=== PATIENT | female | born 1970 | race Caucasian/White ===

== ENCOUNTER → 2021-04-03 16:35 | Outpatient (CLI) | payer OTHER, SELFPAY ==
[2021-04-03 17:17] LABS: Add Manual Diff / Slide Review NO; Basophils Absolute Auto 0 /uL (0-100); Basophils Percent Auto 0.3 % (0-2); Eosinophils Absolute Auto 100 /uL (0-450); Eosinophils Percent Auto 1.5 % (2-4); Hematocrit 38.1 % (36-46); Hemoglobin 13.2 g/dL (12.0-16.0); Lymphocytes Absolute Auto 2500 /uL (1100-4500); Lymphocytes Percent Auto 32.5 % (25-40); Mean Corpuscular HGB Conc 34.7 % (30-36); Mean Corpuscular Hemoglobin 30.7 PG (26-34); Mean Corpuscular Volume 88.4 fL (80-100); Monocytes Absolute Auto 400 /uL (0-900); Monocytes Percent Auto 5.8 % (3-14); Neutrophils Absolute Auto 4600 /uL (1500-7000); Neutrophils Percent Auto 59.9 % (50-75); Platelet Count 239 X10^3/uL (150-400); Red Blood Cell Count 4.32 X10^6/uL (4.0-5.2); Red Cell Distribution Width 12.7 % (11.6-14.8); White Blood Cell Count 7.6 X10^3/uL (4.5-11.0)
[2021-04-03 17:24] LABS: Alanine Aminotransferase 14 IU/L (<35); Albumin 4.9 g/dL (3.5-5.0); Albumin Globulin Ratio 1.8 (1.0-2.8); Alkaline Phosphatase 60 U/L (38-126); Aspartate Aminotransferase 22 IU/L (14-36); BUN Creatinine Ratio 12.7 (6-22); Bilirubin Total 0.5 mg/dL (0.2-1.3); Blood Urea Nitrogen 8 mg/dL (7-17); C-Reactive Protein Quant < 0.5 mg/dL (<1.0); Calcium 10.2 mg/dL (8.4-10.2); Carbon Dioxide 28 mmol/L (22-32); Chloride 105 mmol/L (98-107); Estimated Glomerular Filt Rate > 60.0 mL/min (>60); Globulin 2.7 g/dL (1.7-4.1); Glucose 87 mg/dL (70-100); HEMOLYSIS < 15 (0-50); Lipase 46 U/L (23-300); Potassium 4.7 mmol/L (3.4-5.1); Sodium 139 mmol/L (137-145); Total Protein 7.6 g/dL (6.3-8.2)
[2021-04-03 17:54] LABS: TSH w/ Reflex to FT4 0.87 uIU/mL (0.47-4.68)
== END ==
PROVIDERS: PCP Family Medicine; Referring Provider Family Medicine; Visit Provider Family Medicine
DX: R19.7 Diarrhea, unspecified (principal)
CPT/HCPCS: 36415; 80053; 83690; 84443; 85025; 86140

== ENCOUNTER → 2021-04-08 11:24 | Outpatient (CLI) | payer OTHER, SELFPAY ==
[2021-04-08 15:25] LABS: Clostridium Difficile Tox PCR Negative for C. diff (Negative)
== END ==
PROVIDERS: PCP Family Medicine; Referring Provider Family Medicine; Visit Provider Family Medicine
DX: R19.7 Diarrhea, unspecified (principal)
CPT/HCPCS: 87045; 87177; 87493; 87899

== ENCOUNTER → 2021-04-22 15:48 | Outpatient (CLI) | payer OTHER, SELFPAY ==
[2021-04-23 16:11] LABS: Tissue Transglutaminase IgA <2 U/mL (0-3); Tissue Transglutaminase IgG 2 U/mL (0-5)
== END ==
PROVIDERS: PCP Family Medicine; Referring Provider Family Medicine; Visit Provider Family Medicine
DX: K52.9 Noninfective gastroenteritis and colitis, unspecified (principal)
CPT/HCPCS: 36415; 83516

== ENCOUNTER → 2021-07-01 13:39 | Outpatient (CLI) | payer OTHER, SELFPAY ==
[2021-07-01 15:31] LABS: COVID19 -Nasal RAPID Negative (Negative)
== END ==
PROVIDERS: PCP Family Medicine; Visit Provider Nurse Practitioner Family
DX: Z20.822 Contact with and (suspected) exposure to COVID-19 (principal)
CPT/HCPCS: 87635

== ENCOUNTER → 2021-07-02 08:08 | Day surgery (SDC) | payer OTHER, SELFPAY ==
--- NOTE | 2021-07-02 | PATH_ITS ---
[facility] Accession Number: [id number] . 01 Material submitted: . PART A: duodenum - DUODENUM PART B: stomach - ANTRUM PART C: colon - RANDOM COLON . 02 Diagnosis: A. Duodenum, Biopsy: Duodenal mucosa with no diagnostic abnormality. Negative for active inflammation, features of sprue, dysplasia, or malignancy. . B. Stomach, Antrum, Biopsy: Antral mucosa with mild chronic gastritis. Negative for Helicobacter by immunohistochemistry. Negative for intestinal metaplasia. Negative for dysplasia and malignancy. . C. Random Colon, Biopsy: Colonic mucosa with no diagnostic abnormality. Negative for active, chronic, and microscopic colitis. Negative for dysplasia and malignancy. . . [facility] 07/05/2021 1543 Local . 02 Electronically signed: . Trish Potts MD, Pathologist NPI- [id number] . 01 Gross description: . Part A: DUODENUM: Received in formalin are 4 fragment(s) of reyes, soft tissue measuring 0.4 x 0.3 x 0.2 cm to 0.3 x 0.2 x 0.1 cm submitted entirely in 1 cassette(s) Part B: ANTRUM: Received in formalin are 2 fragment(s) of reyes, soft tissue measuring 0.2 x 0.2 x 0.1 cm to 0.1 x 0.1 x 0.1 cm submitted entirely in 1 cassette(s) Part C: RANDOM COLON: Received in formalin are 4 fragment(s) of reyes, soft tissue measuring 0.4 x 0.2 x 0.1 cm to 0.2 x 0.1 x 0.1 cm submitted entirely in 1 cassette(s) /GLENN 07/03/2021 0345 Local . 02 Microscopic: . B. An immunohistochemical stain was performed to evaluate for Helicobacter organisms and is negative. The control stain showed appropriate reactivity. . * This test was developed and its performance characteristics determined by [facility]. It has not been cleared or approved by the U.S. Food and Drug Administration. The FDA has determined that such clearance or approval is not necessary. This test is used for clinical purposes. It should not be regarded as investigational or for research. . 02 Pathologist provided ICD-10: R19.7 . 02 CPT . 066312, 391339, 635154, E06220 Performed at: 01 [facility] [address] [address], [place], [place] [id number] MD Winston Haider MD Phone: [phone] Performed at: 02 [facility] [address] [place] [id number] MD Trish Potts MD Phone: [phone]
[2021-07-02 08:25] VITALS: BP 114/78; PULSE 69; RESP 18; TEMP 37.3; O2SAT 98; BMI 20.9
--- NOTE | 2021-07-02 08:29 | PM.HP.1 ---
History of Present Illness History of Present Illness Date Patient Seen: 07/02/21 Time Patient Seen: 08:29 Chief complaint: SDC Narrative: I reviewed Dr. walter's note. No changes. Patient History Surgical History History of foot surgery History of third molar tooth extraction Status post tubal ligation Family & Social History Family History Mother No problems noted. Father COPD (chronic obstructive pulmonary disease) Tobacco & Substance use: Smoking Status Former smoker Meds Home Medications and Allergies Home Medications Medication Instructions Recorded Confirmed Type estradiol 1 mg tablet See Rx Instructions .ROUTE 02/18/21 07/02/21 Rx .COMPLEX #90 tab progesterone micronized 200 mg 200 mg PO BEDTIME #90 cap 05/16/21 07/02/21 Rx capsule Allergies Allergy/AdvReac Type Severity Reaction Status Date / Time No Known Drug Allergies Allergy Verified 07/02/21 08:06 Review of Systems Review of Systems ROS: Yes All systems reviewed with the patient and are negative except as otherwise documented Exam Const General: cooperative and comfortable Orientation: alert HENUT Head: normocephalic Ears: external ears normal Nose: external nose normal Face and sinus: normal facial exam Mouth: oral mucosae normal Eyes General: appearance normal, both eyes and all related structures Neck Neck: normal visual inspection Chest Chest: normal inspection of the chest Resp Effort & Inspection: normal respiratory effort Auscultation: clear to auscultation bilaterally Cardio Rate: regular rate Rhythm: regular rhythm Heart Sounds: no murmurs GI Inspection: normal to inspection Palpation: soft and No tender Auscultation: normal bowel sounds Skin General: no rashes or lesions noted and No jaundice Neuro General: patient alert and moves all extremities Cognition: normal cognition Speech: speech normal Extrem General: no pedal edema Psych Appearance: grossly normal Assessment & Plan Assessment & Plan narrative: Epigastric pain diarrhea. EGD and colonoscopy are best pursued today. Time Spent With Patient Critical Care time: I spent a total of [] minutes of critical care time on this patient's care today; this time is exclusive of procedural time.
--- NOTE | 2021-07-02 08:31 | PM.PREOP ---
Pre-operative Note COVID-19 COVID-19 status: Negative Result date/Date tested (Pos, Neg/Pending): 07/01/21 Interval Note History & Physical reviewed/Exam performed by Physician: Yes Changes to H&P: No ASA Class (for procedural sedation): II
[2021-07-02] MEDS: SODIUM CHLORIDE 0.9% 1,000 ML 84 ML IV (08:45)
--- NOTE | 2021-07-02 09:24 | P.OP.EGD&C_ITS ---
Operative Date/Time/Diagnoses Date of procedure: 07/02/21 Time of procedure: 09:24 Pre-op diagnosis: Epigastric pain diarrhea Post-op diagnosis: same Procedure & Clinicians Study performed: EGD with biopsies and colonoscopy with biopsies Same procedure as scheduled: Yes Indications: Epigastric pain and diarrhea Surgeon: Michel Howard Procedure Notes SCOAP/Timeout: Done Procedure in detail: After the risks and benefits were explained, written and verbal informed consent was obtained. The patient was brought into the procedure room and placed into the left lateral decubitus position. Please see nurse editor in chief newspaper sedation notes. scope was introduced into the mouth through the bite block and advanced under direct visualization to the 2nd portion of the duodenum. The scope was slowly withdrawn carefully examining the mucosa for any defects or lesions. Retroflexed views were accomplished in the stomach. The stomach was decompressed, the scope was then removed from the patient who tolerated the procedure well. The patient was then turned around digital rectal examination accomplished no significant pathology appreciated scope was introduced into the rectum and advanced to the cecum as identified by the appendiceal orifice and ileocecal valve. The scope was advanced into the terminal ileum scope was then slowly withdrawn to carefully examine the mucosa for any defects or lesions. Multiple direct views were made through the dentate line for exclusion of pathology the colon was decompressed scope removed from the patient who tolerated the procedure well. Scope withdrawal time: 10 minutes Sedation minutes: 27 Complications: none Impression: 1. Duodenum this is visually normal from the bulb through the 2nd portion. Random biopsies were taken from the 2nd portion for exclusion of sprue. 2. Stomach: Patient had a subtle erythema in the antrum and biopsies were acquired for exclusion of Helicobacter or other pathology. No ulcers no mass lesions no outlet obstruction no other gastric pathology was identified including retroflexed views of the LES. 3. Esophagus: The squamocolumnar junction correlated with the top of the gastric folds. The the GE junction was at approximately 41 cm from the incisors. No active esophagitis. The remainder of the esophagus was unremarkable. 4. Colon: There was no evidence of any proctitis nor any colitis throughout. Random colon biopsies were taken for exclusion of microscopic colitis. No polyps mass lesions or other pathology appreciated throughout. 5. Terminal ileum: This appeared visually normal. Endoscopic diagnosis 1. Mild gastropathy 2. Otherwise visually unremarkable EGD 3. Visually normal colonoscopy and terminal ileoscopy Post-procedure Plan for aftercare: 1. Await histopathology. 2. Repeat colonoscopy 10 years time. 3. Follow up GI clinic. Disposition: PACU
[2021-07-02 09:26] VITALS: BP 104/59; PULSE 86; RESP 18; TEMP 36.5; O2SAT 100
[2021-07-02 09:34] VITALS: BP 107/75; PULSE 88; RESP 16; O2SAT 100
[2021-07-02 09:40] VITALS: BP 130/66; PULSE 82; RESP 12; O2SAT 100
[2021-07-02 09:42] VITALS: BP 127/68; PULSE 79; RESP 17; TEMP 36.5; O2SAT 100
[2021-07-02 09:54] VITALS: BP 127/87; PULSE 88; RESP 18; O2SAT 100
== END | disposition home or self-care (01) ==
PROVIDERS: PCP Family Medicine; Referring Provider Internal Medicine Gastroenterology; Visit Provider Internal Medicine Gastroenterology
PROC: 0DJ08ZZ Inspection of Upper Intestinal Tract, Via Natural or Artificial Opening Endoscopic (ICD-10-PCS; CPT 43235; principal; 2021-07-02 09:00)
PROC: 0DJD8ZZ Inspection of Lower Intestinal Tract, Via Natural or Artificial Opening Endoscopic (ICD-10-PCS; CPT 45378; 2021-07-02 09:00)
DX: R19.7 Diarrhea, unspecified (principal); K29.50 Unspecified chronic gastritis without bleeding
CPT/HCPCS: 45380; 43239; J2704